=== PATIENT | male | born 1990 | race Caucasian/White ===

== ENCOUNTER 2018-01-06 18:17 | Observation (INO) ==
[2018-01-06] MEDS ORDERED: SODIUM CHLORIDE 0.9% 1,000 ML IV STA (19:13)
[2018-01-06] MEDS ORDERED: ONDANSETRON 4 MG/2 ML VIAL IV STA (19:13)
[2018-01-06 19:42] LABS: Apearance,Urine CLEAR (Clear); Bilirubin,Urine Negative (Negative); Blood, Urine Negative (Negative); Glucose,Urine (UA) Negative (Negative); Ketones,Urine Negative (Negative); Mucus,Urine Occasional /LPF (Occasional); Nitrite,Urine Negative (Negative); Protein,Urine Negative; RBC,Urine 2 /HPF (0-4); Squamous Epithelial Cell,Urine Occasional /HPF (0-10); Urine Color Yellow (Yellow); Urine Specific Gravity 1.012 (1.001-1.035); Urine Urobilinogen < 2.0 EU/DL (0.2-1.0); WBC,Urine 1 /HPF (0-6)
[2018-01-06 19:53] LABS: Basophils # 0.1 10*3/uL (0.0-0.2); Basophils % 0.4 % (0.0-0.8); Eosinophils # 0.3 10*3/uL (0.0-0.87); Eosinophils % 1.9 % (0.00-10.9); Hematocrit 28.9 VOL% (42.0-52.0); Hemoglobin 8.3 GM/DL (14.0-18.0); Immature Granulocytes % 2.6 %; Immature Granulocytes Absolute 0.41 #; Lymphocytes # 0.9 10*3/uL (1.4-4.0); Lymphocytes % 5.8 % (21.2-54.2); Mean Corpuscular HGB Conc 28.7 GM/DL (32-36); Mean Corpuscular Hemoglobin 20 PG (27-34); Mean Corpuscular Volume 70.7 FL (87-102); Mean Platelet Volume 8.9 FL (9.6-12.0); Monocytes # 1.9 10*3/uL (0.11-0.8); Monocytes % 12.1 % (1.7-12.7); NRBC # 0.18 10*3/uL; Neutrophils # 12.4 10*3/uL (1.4-7.4); Neutrophils % 77.2 % (38.7-73.9); Platelet Count 356 T/CUMM (130-400); Red Blood Count 4.09 MC/CUMM (3.8-5.5); Red Cell Distribution Width 24.1 % (9.3-17.3); White Blood Count 16.1 T/CUMM (4-12)
[2018-01-06 19:58] LABS: Lactic Acid 3.7 MMOL/L (0.4-2.0)
[2018-01-06 20:04] LABS: Alanine Aminotransferase 11 U/L (16-61); Albumin 1.9 G/DL (3.4-5.0); Alkaline Phosphatase 59 U/L (45-117); Aspartate Amino Transferase 23 U/L (0-37); Bilirubin,Total < 0.39 MG/DL (0.2-1.0); Blood Urea Nitrogen 15 MG/DL (7-18); Calcium 8.4 MG/DL (8.5-10.1); Glucose 98 MG/DL (74-106); Osmolality,Calculated 275.7 MOS/KG (273-304); Sodium 138 MMOL/L (136-145); Total Protein 5.2 G/DL (6.4-8.3)
[2018-01-06 20:09] LABS: Anisocytosis Slight; Band Neutrophils 5 % (0-10); Hypochromasia 1+; Lymphocytes 13 % (20-55); Platelet Estimate Normal; Segmented Neutrophils 76 % (50-85); Tear Drop Cells Few; Total Cells Counted 100
[2018-01-06 20:10] LABS: Microcytosis 2+; Polychromasia Few
[2018-01-06] MEDS ORDERED: ONDANSETRON 4 MG/2 ML VIAL IV PRN (20:31)
[2018-01-06] MEDS ORDERED: PROMETHAZINE INJ 25 MG in SODIUM CHLORIDE 0.9% 50 ML IV PRN (20:31)
[2018-01-06] MEDS ORDERED: guaiFENesin 200 MG/10 ML UDCUP PO PRN (20:31)
[2018-01-06] MEDS ORDERED: chlorproMAZINE INJ 25 MG in SODIUM CHLORIDE 0.9% 100 ML IV PRN (20:31)
[2018-01-06] MEDS ORDERED: LOPERAMIDE 2 MG CAPSULE PO PRN ×2 (20:31)
[2018-01-06] MEDS ORDERED: MAGNESIUM HYDROXIDE SUSP 30 ML UDCUP PO PRN (20:31)
[2018-01-06] MEDS ORDERED: TEMAZEPAM 7.5 MG CAPSULE PO PRN (20:31)
[2018-01-06] MEDS ORDERED: BENZTROPINE 2 MG/2 ML AMP IV PRN (20:31)
[2018-01-06] MEDS ORDERED: traMADol 50 MG TABLET PO PRN (20:31)
[2018-01-06] MEDS ORDERED: ALUMINUM/MAGNES/SIMETH MAX STR 30 ML UDCUP PO PRN (20:31)
[2018-01-06] MEDS ORDERED: MYLANTA/LIDO VISC 2:1 300 ML BOTTLE SWISH/SPIT PRN (20:31)
[2018-01-06] MEDS ORDERED: MYLANTA/LIDO VISC 2:1 300 ML BOTTLE SWISH/SWAL PRN (20:31)
[2018-01-06] MEDS ORDERED: diphenhydrAMINE CAP 25 MG CAPSULE PO PRN (20:31)
[2018-01-06] MEDS ORDERED: ALPRAZolam 0.25 MG TABLET PO PRN (20:31)
[2018-01-06] MEDS ORDERED: chlorproMAZINE INJ 50 MG in SODIUM CHLORIDE 0.9% 100 ML IV PRN (20:31)
[2018-01-06] MEDS ORDERED: chlorproMAZINE 25 MG TABLET PO PRN (20:31)
[2018-01-06] MEDS ORDERED: LACTULOSE 20 GM/30 ML UDCUP PO PRN (20:31)
[2018-01-06] MEDS ORDERED: MORPHINE 4 MG/1 ML VIAL IV PRN (20:37)
[2018-01-06] MEDS: SODIUM CHLORIDE 0.9% 1,000 ML IV SCH (21:26)
[2018-01-06] MEDS: ACETAMINOPHEN 325 MG TABLET PO PRN (21:53)
[2018-01-06] MEDS: PIPERACILLIN/TAZOBACTAM 3,375 MG in SODIUM CHLORIDE 0.9% 100 ML IV SCH (23:00)
[2018-01-07 04:39] LABS: Albumin 1.6 G/DL (3.4-5.0); Bilirubin,Total 0.4 MG/DL (0.2-1.0); Calcium 7.8 MG/DL (8.5-10.1); Osmolality,Calculated 281.3 MOS/KG (273-304); Total Protein 4.6 G/DL (6.4-8.3); Uric Acid 9.1 MG/DL (3.5-7.2)
[2018-01-07 04:53] LABS: Basophils # 0.1 10*3/uL (0.0-0.2); Basophils % 0.5 % (0.0-0.8); Eosinophils # 0.5 10*3/uL (0.0-0.87); Eosinophils % 3.9 % (0.00-10.9); Hematocrit 26.6 VOL% (42.0-52.0); Hemoglobin 7.3 GM/DL (14.0-18.0); Immature Granulocytes % 1.8 %; Immature Granulocytes Absolute 0.23 #; Lymphocytes # 1.4 10*3/uL (1.4-4.0); Mean Corpuscular HGB Conc 27.4 GM/DL (32-36); Mean Corpuscular Hemoglobin 20 PG (27-34); Mean Corpuscular Volume 72.9 FL (87-102); Mean Platelet Volume 8.5 FL (9.6-12.0); Monocytes # 2.6 10*3/uL (0.11-0.8); Monocytes % 20.1 % (1.7-12.7); Neutrophils # 8.1 10*3/uL (1.4-7.4); Neutrophils % 62.7 % (38.7-73.9); Platelet Count 523 T/CUMM (130-400); Red Blood Count 3.65 MC/CUMM (3.8-5.5); Red Cell Distribution Width 23.9 % (9.3-17.3); White Blood Count 12.9 T/CUMM (4-12)
[2018-01-07 04:56] LABS: Anisocytosis 2+; Band Neutrophils 3 % (0-10); Elliptocytes Few; Eosinophils 3 % (0-10); Lymphocytes 18 % (20-55); Microcytosis 3+; Polychromasia 1+; Segmented Neutrophils 67 % (50-85); Total Cells Counted 100
[2018-01-07 04:57] LABS: Platelet Estimate Increased
[2018-01-07 04:59] LABS: Lactic Acid 5.2 MMOL/L (0.4-2.0)
[2018-01-07] MEDS: PIPERACILLIN/TAZOBACTAM 3,375 MG in SODIUM CHLORIDE 0.9% 100 ML IV SCH (06:35)
[2018-01-07] MEDS ORDERED: RASBURICASE IV ONE (07:00)
[2018-01-07] MEDS ORDERED: SODIUM CHLORIDE 0.9% IV ONE (07:00)
[2018-01-07] MEDS ORDERED: DORZOLAMIDE/TIMOLOL OPH SOLN 10 ML BOTTLE RIGHT EYE SCH (09:30)
[2018-01-07] MEDS ORDERED: SODIUM CHLORIDE 0.9% IV SCH (11:00)
[2018-01-07] MEDS ORDERED: LEVETIRACETAM IV SCH (11:00)
[2018-01-07] MEDS ORDERED: SODIUM CHLORIDE 0.9% 1,000 ML IV PRN (12:03)
[2018-01-07] MEDS ORDERED: diphenhydrAMINE CAP 25 MG CAPSULE PO PRN (12:03)
[2018-01-07] MEDS: PIPERACILLIN/TAZOBACTAM 4,500 MG in SODIUM CHLORIDE 0.9% 100 ML IV SCH ×2 (13:11→19:42)
[2018-01-07] MEDS: SODIUM CHLORIDE 0.9% 1,000 ML IV SCH (13:12)
[2018-01-07 13:42] LABS: Lactic Acid 4.8 MMOL/L (0.4-2.0)
[2018-01-07] MEDS: ACETAMINOPHEN 325 MG TABLET PO PRN (15:58)
[2018-01-07] MEDS ORDERED: methylPREDNISolone SOD SUC 125 MG/2 ML VIAL IV ONE (16:23)
[2018-01-07 19:17] VITALS: BP 110/54
[2018-01-07] MEDS ORDERED: LEVETIRACETAM PO SCH (21:00)
[2018-01-07] MEDS ORDERED: ZONISAMIDE 100 MG CAPSULE PO SCH (21:00)
[2018-01-07] MEDS ORDERED: PERAMPANEL 8 MG PO SCH (21:00)
[2018-01-08] MEDS ORDERED: LEVOTHYROXINE 50 MCG TABLET PO SCH (07:00)
[2018-01-08] MEDS ORDERED: ZONISAMIDE 100 MG CAPSULE PO SCH (09:00)
[2018-01-08] MEDS ORDERED: DORZOLAMIDE/TIMOLOL OPH SOLN 10 ML BOTTLE RIGHT EYE SCH ×2 (09:00)
== END 2018-01-07 19:17 | disposition hospice, home (50) ==
LOC: N.EDINP 18:17 → N.ED 18:17 → N.4E 21:30
PROVIDERS: ADMIT Internal Medicine Hematology & Oncology; ATTEND Internal Medicine Hematology & Oncology